=== PATIENT | male | born 1955 | race Caucasian/White ===

== ENCOUNTER 2024-04-22 05:56 | Inpatient (IN) ==
--- NOTE | 2024-03-22 11:42 | PAT Medication Instructions ---
Medication Instructions Date of Service March 22, 2024 Home Medications Medication Instructions Recorded amlodipine 10 mg tablet 10 mg PO QAM #90 tabs 06/04/23 metformin 1,000 mg tablet 1,000 mg PO BIDWMEAL #180 tabs 06/04/23 dapagliflozin propanediol 10 mg 10 mg PO QAM #90 tabs 10/10/23 tablet (Farxiga) atorvastatin 10 mg tablet 10 mg PO QPM #90 tabs 02/11/24 multivitamin 1 tab PO QAM aspirin 81 mg tablet,delayed release 81 mg PO QPM amlodipine 10 mg tablet 10 mg PO QAM metformin 1,000 mg tablet 1,000 mg PO BIDWMEAL dapagliflozin propanediol 10 mg tablet (Farxiga) 10 mg PO QAM atorvastatin 10 mg tablet 10 mg PO QPM dutasteride 0.5 mg capsule 0.5 mg PO QAM ASK your prescriber and surgeon aspirin 81 mg tablet,delayed release 81 mg PO QPM STOP taking 3 days before surgery dapagliflozin propanediol 10 mg tablet (Farxiga) 10 mg PO QAM STOP taking 48 hours before surgery metformin 1,000 mg tablet 1,000 mg PO BIDWMEAL DO NOT take the morning of surgery multivitamin 1 tab PO QAM amlodipine 10 mg tablet 10 mg PO QAM Take morning of surgery With a small sip of water, OTHERWISE NOTHING TO EAT OR DRINK AFTER MIDNIGHT: dutasteride 0.5 mg capsule 0.5 mg PO QAM Take evening before surgery atorvastatin 10 mg tablet 10 mg PO QPM Other Notes If you have any questions please call us at [phone] or [phone] or [phone] or [phone]
--- NOTE | 2024-03-31 09:46 | Anesthesiology Consultation ---
Date of Service March 31, 2024 Assessment & Plan (1) Encounter for pre-operative examination: - Check BSG AM DOS - Infectious disease screening: Per assessment on 03/31/24: No known recent infectious disease contacts in past 10 days. Patient's did test Covid positive 03/11/24. Patient states shortly after, he developed similar URI symptoms which have resolved except mild residual cough. Home Covid testing has been negative. DOS not until 04/22/24. Patient was advised to contact PAT/surgeon if symptoms not at baseline prior to surgery. Chart Review Chart Review: Acceptable Risk for Surgery and Patient seen in Pre Admission Testing Teaching & Discussion Pre-Anesthesia Teaching/Discussion Notes: Instructed NPO after midnight before surgery,except medications with 15 cc of water. Medication instructions provided according to the PAT guidelines. History Surgery Operation Date: 04/22/24 07:30 Proposed Procedures p Robotic Laparoscopic Assisted Radical Retropubic Prostatectomy, Possible Open, Possible Pelvic Lymph Node Dissection - Immanuel Gallo, DO Height/Weight Height: 5 ft 5 in Weight: 85.1 kg Allergies Allergy/AdvReac Type Severity Reaction Status Date / Time lisinopril AdvReac Mild Cough Verified 03/17/24 13:05 valsartan [From Diovan] AdvReac Mild Cough Verified 03/30/24 09:00 Medications Home Medications Medication Instructions Recorded Confirmed Last Taken multivitamin 1 tab PO QAM 12/20/20 03/17/24 12/21/22 aspirin 81 mg tablet,delayed 81 mg PO QPM 12/12/22 03/17/24 12/19/22 release amlodipine 10 mg tablet 10 mg PO QAM #90 tabs 06/04/23 03/17/24 Unknown metformin 1,000 mg tablet 1,000 mg PO BIDWMEAL #180 tabs 06/04/23 03/17/24 Unknown dapagliflozin propanediol 10 mg 10 mg PO QAM #90 tabs 10/10/23 03/17/24 Unknown tablet (Farxiga) atorvastatin 10 mg tablet 10 mg PO QPM #90 tabs 02/11/24 03/17/24 Unknown dutasteride 0.5 mg capsule 0.5 mg PO QAM 03/17/24 03/17/24 Unknown Past Medical History Medical History (Updated 03/31/24 @ 09:41 by Hayley Motley) Aortic root dilatation Echo 07/2023: Aortic root is normal size. Borderline dilated ascending aorta. BPH w urinary obs/LUTS Diabetes mellitus, type 2 History of elevated PSA Hx of colonic polyps Hyperlipidemia Hypertension Prostate CA (01/2024) Sensorineural hearing loss (SNHL) of both ears Per records: Mild sloping to severe SNHL AU Wears hearing aid in both ears Per records: Phonak B90-10 CIC titanium Exercise / Class Metabolic Activity II 4-5 Yardwork/Stairs/Walk up hill (one FS: No CP, no SOB) Past Family History Family History Father Congestive heart failure Heart disease Melanoma Hypertension Mother Alzheimer disease Dementia Sister No problems noted. Daughter No problems noted. Daughter No problems noted. Other Encounter for pre-operative examination No family history of adverse response to anesthesia Denies family history of Colon cancer Ovarian cancer Prostate cancer Myocardial infarction Breast cancer Past Surgical History Surgical History (Updated 03/30/24 @ 09:03 by Hayley Motley) H/O cystoscopy H/O prostate biopsy 04/2018 (benign), 01/2024 (cancer) Hx of colonoscopy with polypectomy Hx of tonsillectomy (1959) [place] teeth removed Past Anesthesia History No Hx of Anesthesia Complications and No Family Hx of Anesthesia Complications History of PONV No Hx of PONV and No Hx of Motion Sickness Social History Smoking Status: Never smoker Do You Dip or Chew Tobacco: No Hx Alcohol Use: Yes Alcohol type: beer, wine and hard liquor alcohol intake frequency: a few times a month Hx Substance Use: No substance use type: does not use Review of Systems Patient denies chest pain, shortness of breath, dyspnea on exertion, fever, chills, cough, wheezing, palpitations. Physical Exam Vital Signs BP 112/69 P 67 TEMP 97.8 SP02 95%RA RESP 16 Physical Full cervical extension range of motion. Full TMJ range of motion. TMD > 3.5 finger breaths Mallampati Score III Dentition: intact, + crowns Lungs: clear throughout to auscultation Cardiac: regular rate and rhythm, no murmurs noted Spine: normal Carotid arteries: negative bruit Extremities: no LE edema Lab Results Anesthesia Preop Results Results Anesthesia Widget: WBC 5.26 K/ul (4.8-10.8) 03/31/24 Hgb 15.7 g/dl (14.0-18.0) 03/31/24 Hct 44.5 % (42.0-52.0) 03/31/24 Plt 162 K/uL (130-400) 03/31/24 Na 140 mmol/L (136-145) 03/31/24 K 3.8 mmol/L (3.5-5.1) 03/31/24 Cl 104 mmol/L (98-107) 03/31/24 CO2 26 mmol/L (21-32) 03/31/24 BUN 19 mg/dl (6-23) 03/31/24 Creat 0.80 mg/dl (0.6-1.4) 03/31/24 Glucose Level 145 mg/dl (70-99(Fasting)) H 03/31/24 HA1c 6.2 % (4.5-5.6) H 02/05/24 Blood Type B Positive 03/31/24 Antibody Screen NEGATIVE 03/31/24 Testing Laboratory Results Urine culture (03/31/24): pending Electrocardiogram Date: 03/31/24 NSR at 66bpm. LAD. Minimal voltage criteria for LVH, may be normal variant. No significant change compared to 06/30/2022 per block saw operator comparison. Chest X-Ray Date: 03/31/24 FINDINGS: No lines and tubes are seen. The cardiomediastinal silhouette is normal. The lungs are clear. No evidence of pleural effusion or pneumothorax. IMPRESSION: No acute chest disease. Echocardiogram Date: 08/19/23 EF 55-60%. Grade I DD. No RWMA. No thrombus. Borderline cLVH. Borderline dilated ascending aorta.
[2024-04-22] MEDS ORDERED: LACTATED RINGER'S 1,000 ML IV SCH (06:00)
[2024-04-22] MEDS: LACTATED RINGER'S 1,000 ML IV SCH (06:44)
[2024-04-22] MEDS: HEPARIN SOD 5,000 UNIT/0.5 ML VIAL SQ SCH (06:45)
--- NOTE | 2024-04-22 06:47 | History & Physical Report ---
Date of Service April 22, 2024 Assessment & Plan (1) Prostate CA: (2) Diabetes mellitus, type 2: (3) Aortic root dilatation: (4) BPH w urinary obs/LUTS: (5) Hypertension: Plan Patient with Giovani 4+5 Prostate Cancer. 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 Significant prostate enlargement. Risks and benefits discussed at length for procedure. These include bleeding, infection, injury to surrounding tissues or organs, and risks associated with anesthesia. Patient states understanding and agrees to proceed. Will sign consent and proceed. Plan for Robot assisted Laparoscopic Radical Prostatectomy with Bilateral Pelvic Lymph Node dissection History of Present Illness Primary Care Provider: Ruiz Tena MD Patient here for procedure. No changes in medical issues. No major changes in urinary issues. Continued issues and concerns. No change in pain or discomfort. No severe fevers or chills. No chest pain or shortness of breath. Risks and benefits discussed at length for procedure. These include bleeding, infection, injury to surrounding tissues or organs, and risks associated with anesthesia. Patient and/or family states understanding and agrees to proceed. Consent and supporting information completed. Allergies Allergy/AdvReac Type Severity Reaction Status Date / Time lisinopril AdvReac Mild Cough Verified 04/22/24 06:17 valsartan [From Diovan] AdvReac Mild Cough Verified 04/22/24 06:17 Home Medications Medication Instructions Recorded Confirmed Type multivitamin 1 tab PO QAM 12/20/20 04/22/24 History aspirin 81 mg tablet,delayed 81 mg PO QPM 12/12/22 04/22/24 History release amlodipine 10 mg tablet 10 mg PO QAM #90 tabs 06/04/23 04/22/24 Rx metformin 1,000 mg tablet 1,000 mg PO BIDWMEAL #180 tabs 06/04/23 04/22/24 Rx dapagliflozin propanediol 10 mg 10 mg PO QAM #90 tabs 10/10/23 04/22/24 Rx tablet (Farxiga) atorvastatin 10 mg tablet 10 mg PO QPM #90 tabs 02/11/24 04/22/24 Rx dutasteride 0.5 mg capsule 0.5 mg PO QAM 03/17/24 04/22/24 History Past Med/Surg History Problem List Encounter for pre-operative examination Microalbuminuria Proteinuria Bilateral tinnitus Atypical small acinar proliferation of prostate Actinic keratosis Medical History Wears hearing aid in both ears Per records: Phonak B90-10 CIC titanium Sensorineural hearing loss (SNHL) of both ears Per records: Mild sloping to severe SNHL AU Hx of colonic polyps BPH w urinary obs/LUTS Aortic root dilatation Echo 07/2023: Aortic root is normal size. Borderline dilated ascending aorta. Hypertension Prostate CA (01/2024) History of elevated PSA Diabetes mellitus, type 2 Hyperlipidemia Surgical History Hx of colonoscopy with polypectomy H/O cystoscopy [place] teeth removed H/O prostate biopsy 04/2018 (benign), 01/2024 (cancer) Hx of tonsillectomy (1960) Family History Father Congestive heart failure Heart disease Melanoma Hypertension Mother Alzheimer disease Dementia Sister No problems noted. Daughter No problems noted. Daughter No problems noted. Other Encounter for pre-operative examination No family history of adverse response to anesthesia Denies family history of Colon cancer Ovarian cancer Prostate cancer Myocardial infarction Breast cancer Social History Smoking Status: Never smoker Second Hand Exposure: No; Do You Dip or Chew Tobacco: No; Tobacco Cessation Education Requested by Patient: No Hx Alcohol Use: Yes Alcohol type: beer, wine and hard liquor Hx Substance Use: No Preferred Language: Urdu Communication Ability: Effective Visual Impairment: Limited Hearing Ability: Use of Hearing Aid Tile Applicator Required: No Beliefs That Will Affect Care: None marital status: Current Living Situation: Spouse current occupational status: retired How many Children do You have: 2 Other Information That Helps Us Care for You: No Feels Safe at Home: Yes Safety Concerns: Feels Safe At This Time Childhood Exposure to Second-Hand Smoke: Yes Diet: regular caffeine: Yes during the past year weight has: remained stable Dental Care, Regularly: Yes Physical Activity Frequency: Daily Seatbelt Use: always Sunscreen Use: Yes Assistive Devices: Glasses and Hearing Aid - Bilateral Review of Systems All systems reviewed & are unremarkable except as noted in HPI & below Physical Exam Physical Exam: General: Alert/Arousable. No Acute illness. . HEENT: Inspection normal. Normal inspection of face. Normal inspection of neck. Psychologic: Normal affect/No change in mentation. Respiratory: No use of accessory muscles. No respiratory changes or exacerbation or changes with tachypnea or dyspnea. Cardiovascular: No tachycardia Skin: Kersey and Dry. No new rashes or visible lesions. Abdomen: Normal inspection. No guarding. Results & Data Vital Signs (Past 12 Hours) Vital Signs Temp Pulse Resp BP Pulse Ox O2 Del Method 04/22/24 06:22 36.9 C 64 20 136/75 95 Room Air PG Care Time/CCT Total # of Minutes Spent Total Time Spent with Patient: Total time spent is greater than 50% in coordination of care (as documented) at patient's floor/unit and/or counseling patient: Coding Level of Care Code None Diagnoses Prostate CA C61 Diabetes mellitus, type 2 E11.9 Aortic root dilatation I77.810 BPH w urinary obs/LUTS N40.1; N13.8 Hypertension I10
[2024-04-22] MEDS ORDERED: MIDAZOLAM HCL 1 MG/ML 2ML VIAL ONE (06:50)
[2024-04-22] MEDS ORDERED: LIDOCAINE 2% 2 ML VIAL/AMP(20MG/ML) INFIL ONE (06:50)
[2024-04-22] MEDS ORDERED: ROCURONIUM BROMIDE 10 MG/ML 5 ML VIAL IV ONE ×2 (06:50→08:09)
[2024-04-22] MEDS ORDERED: PROPOFOL IV EMULSION 10 MG/ML 20 ML VIAL IV ONE (06:50)
[2024-04-22] MEDS ORDERED: ONDANSETRON INJ 2 MG/ML 2 ML VIAL ONE (06:50)
[2024-04-22] MEDS ORDERED: DEXAMETHASONE SOD INJ 4 MG/ML VIAL ONE (06:50)
[2024-04-22] MEDS ORDERED: HYDROmorphone INJ 2 MG/ML SYR/VIAL ONE (06:51)
[2024-04-22] MEDS ORDERED: fentaNYL citrate PF 100 MCG/2 ML VIAL ONE (06:51)
[2024-04-22] MEDS ORDERED: fentaNYL citrate PF 100 MCG/2 ML VIAL IV PRN (07:18)
[2024-04-22] MEDS ORDERED: HYDROmorphone INJ 2 MG/ML SYR/VIAL IV PRN (07:18)
[2024-04-22] MEDS ORDERED: PROMETHAZINE HCL 6.25 MG in SODIUM CHLORIDE 0.9% 50 ML IV PRN (07:18)
[2024-04-22] MEDS ORDERED: ePHEDrine sulfate 50 MG/ML AMP IV PRN (07:18)
[2024-04-22] MEDS ORDERED: ATROPINE SULFATE 0.1 MG/ML 10ML SYR IV PRN (07:18)
[2024-04-22] MEDS ORDERED: ONDANSETRON INJ 2 MG/ML 2 ML VIAL IV PRN ×2 (07:18→13:49)
[2024-04-22] MEDS: ceFAZolin 2000MG 2,000 MG/15 ML SYR IV SCH ×2 (07:28→15:32)
[2024-04-22] MEDS ORDERED: PHENYLEPHRINE 100MCG/ML 5ML SYR ONE ×2 (08:01→10:06)
[2024-04-22] MEDS ORDERED: ePHEDrine sulfate 50 MG/ML AMP ONE (08:01)
[2024-04-22] MEDS ORDERED: SUGAMMADEX SODIUM 200 MG/2 ML VIAL IV ONE (09:21)
[2024-04-22] MEDS: SURGICEL ABSORB HEMOSTAT 2IN X 14IN TOP ONE (09:31)
[2024-04-22] MEDS ORDERED: ALBUMIN HUMAN 5% 12.5 GM/250 ML VIAL IV ONE ×2 (10:10→10:32)
[2024-04-22] MEDS: TISSEEL FIBRIN SEALANT 10ML TOP ONE (11:31)
--- NOTE | 2024-04-22 12:14 | Operative Report ---
PG Post Operative Report Pre & Post Diagnosis Operation Date: 04/22/24 07:30 Pre-Op Diagnosis: Prostate Cancer Post-Op Diagnosis: Prostate Cancer I identified the patient and participated in the time-out.: Yes Procedure Operation Date: 04/22/24 07:30 Actual Procedures p Robotic Assisted Laparoscopic Radical Retropubic Prostatectomy with Pelvic Lymph Node Dissection, Extensive Lysis of adhesions, Resection of pelvic mass likely inflammed epiploic appendage. - Immanuel Gallo, Surgeon Immanuel Gallo, II, DO [employer] Aaron STEVENS Estimated Blood Loss 900 Findings Consistent with Post-Op Diagnosis Severe adhesions on the left and right pelvic sidewall to the colon. Calcified/inflamed appearing mass in the lower left pelvis likely inflamed epiploic appendage with significant adhesions. Significant adherence of the posterior prostate and lateral prostate along the pelvic sidewall Specimens Prostate and Seminal Vesicle Left Pelvic Lymph Nodes Right Pelvic Lymph Nodes. Pelvic mass for frozen Drains 18 FR Pabon catheter. Anesthesia Type General Complications none Disposition Disposition: Recovery Room Indications Patient with Prostate Cancer. Risk and benefits were discussed at length. Patient elected to undergo robotic assisted laparoscopic Radical Prostatectomy. Description of Procedure The patient was brought to the operative suite and placed under general endotracheal intubation anesthesia in the supine position. The patient was transferred to the dorsal lithotomy position. At this point, the patient prepped and draped in the usual sterile fashion and a timeout was completed. Preoperative antibiotics of Ancef 2 grams had been given. WIN's and SCD's were placed on the patient's lower extremities. A catheter was placed using sterile technique. With the time out completed the patient was placed into Trendelenburg and the skin at the umbilicus was anesthetized. A small incision was made superior to the umbilicus. A Varess Needle was placed and confirmed to be in the abdominal cavity. Water drop test passed. The Abdominal cavity was insufflated to 15 m mHG. The camera port was then placed. A laparoscopic camera was placed into the port and the abdominal cavity inspected. No concerning features were noted. At this point, the skin was marked for port placement and 8mm working ports were placed. The skin was anesthetized down to fascia and an approx 1cm incision was made to place the 3 x 8mm ports. A 12mm and 5 mm assistant producer ports were also plac ed in similar fashion under direct visualization. Due to significant occasions near the 12 mm port laparoscopic tools were utilized to sharply dissect the thin adhesions near the site where the 12 mm port was going to be placed. Care was taken to monitor the bowel throughout the entire process. No sign of any injury or tearing was noted. No heat/cautery was used during this dissection The patient was transferred into steep Trendelenburg position and the legs lowered. The robot was positioned and docked. The camera was placed and all trocars were positioned under direct visualization. RODNEY Encarnacion was integral in port placement, camera utilization, and docking procedure. She remained in sterile attire and then proceeded to assist the remainder of the case. At this point, I transitioned to the robotic console. At this point, the sigmoid colon was mobilized superiorly and the pelvis assessed. More significant adhesions were noted in the left lower quadrant and lower pelvis. Additional ones were also discovered on the right. Extensive adhesions were freed to allow mobilization. Greater than 20 minutes undergoing lysis of adhesions. Within the left pelvis around the return of the sigmoid colon there was a inflamed possibly calcified masslike structure that was discovered. It appeared to be a likely inflamed epiploic appendage. Due to the patient's known history of prostate cancer did carefully dissect this lesion from the pelvic wall. It was able to be removed without major issue placed into an Endo Catch bag and sent for frozen assessment. The pathology report came back as fat material likely epiploic appendage consistent with the interoperative findings. The peritoneum in the midline was opened between rectum and bladder and the vas deferens and seminal vesicles exposed. These were dissected with blunt technique. The vas was clipped and cut and mobilized. Cautery was used to assist dissection avoiding the tissue posteriorly near the rectum. The tissues lateral to the seminal vesicles were clipped with a hemolock and all bleeding controlled. This was taken as inferior as possible from this position. Significant adherence was noted along the lateral edges. There was a moderate amount of venous appearing bleeding coming from the lateral edges. Minimal cautery was utilized. The medial umbilical ligaments were then identified and the peritoneum directly lateral on the right followed by the left was opened. The tissues were bluntly dissected to free the bladder's lateral attachments. This was taken down to the pubic bone and exposed the endopelvic fascia bilaterally. The medial ligaments were cut and the bladder dropped. The tissues was dissected anterior to the prostate. The right and left pelvic lymph tissue was identified in relation to the iliac vessels. Distal dissection was taken to the Node of [place]. Inferiorly the obtorator vessels and nerve were identified. Lymphatic tissue within the surround fat tissue was dissected. This packet of tissues were sent for pathologic analysis and lymph node assessment. This was done for each separate side. Hemostatic agent was placed on the exposed vessels. The endopelvic fascia on each side was then opened and the lateral edges of the prostate dissected. The Dorsal venous complex of the prostate was dissected and assessed. A 2-0 PDS suture was used to ligate the vessels. A suspension stitch was used and clipped. An additional 3-0 Vicryl suture was then used to close additional areas of the dorsal venous structure. Electrocautery was used to cut the anterior attachments, the puboprostatic ligaments, and venous tissues. The pabon was manipulated to better visual the bladder neck and dissection was taken using electrocautery. The bladder neck was opened and dissected from the prostate. The UO were identifed and dissection taken in a direction to avoid each side. The vas stump and seminal vesicles were exposed and used to assist in traction to dissect. The prostatic pedicles were better exposed. Significant inflamed tissue and thickened tissue was noted in this area. The prostatic pedicle were extremely thick and placing clips across them was discovered to be difficult. Clips were able to be placed with additional dissection and dissection was then able to be taken further. The posterior prostate was dissected. The tissue of the posterior prostate as well as the lateral edges was found to be severely thickened and inflamed likely from previous multiple biopsies as well as chronic prostatitis issues from prostate enlargement. No signs of mass or tumor were noted to be projecting from the posterior capsule or the prostate. The tissue was severely thickened and clip placement was difficult. An attempt was made to limit cautery and utilize cold dissection of the lateral posterior prostate to attempt preservation of the neurovascular bundle bilaterally. Hemolock clips were utilized to clip the prostatic pedicle bilaterally. The dissection was taken to the apex of the prostate. The anterior prostate was released and the urethra exposed. Cold cutting was used to open the anterior portion and expose the catheter. This was removed and the urethra incised. The prostate was further freed and grasped and removed from the field. The entire dissection bed was inspected.Hemostatic agent was placed in the region. No areas of injury or bleeding was noted. Care was taken to examine the perirectal tissues. A probe was placed and no injuries or other issues were observed. The dorsal venous structure was closed with an additional 3-0 Vicryl suture. A 3-0 Vicryl suture was then used to reduce the space between the bladder and the periurethral tissue. The bladder neck and urethra were then approximated with a running barbed suture starting at the 5 o'clock position and moving to the 12 o'clock on each side. This was tied at the anterior portion. A leak test was completed without any evidence of issues. Tisseel, Floseal, and Surgicel were all placed within the wound bed and the resection sites. The entire dissection space was inspected one final time. No bleeding or injuries or areas of concern were noted. No tumor or other concerning features were noted. At this point, the robot was undocked and moved away from the patient. The patient was taken out of Trendelenberg. The port sites were all assessed laparoscopically. The endoscopic bag was moved into the midline port. The 12 mm port site was closed with the Jakob Garcia device. The other ports were assessed and no issues observed. The umbilical incision was opened further exposing fascia which was then opened in order to removed the prostate in the bag. The prostate was removed. A running 1-0 PDS suture was used to close fascia. The skin at each site was closed with a running Monocryl suture. The area was cleaned and glue placed on each incision. The patient was cleaned and bandaged, aroused from anesthesia, and transferred to the pacu in stable condition having tolerated the procedure well with no complications. I was present and participated in all aspects of the procedure. Aaron STEVENS was critical in the portions as mentioned above. Will plan to observe postoperatively and monitor. Pabon to be remain in place until followup. I attest to the content of the Intraoperative Record and any orders documented therein. Any exceptions are noted below.
[2024-04-22] MEDS: FLOSEAL HEMOSTATIC MATRIX 10ML TOP ONE (12:15)
[2024-04-22] MEDS: BUPIVACAINE 0.5 % 5 MG/1 ML MPF 30ML VIAL ONE (12:15)
[2024-04-22 12:27] LABS: iSTAT Creatinine 1.1 mg/dl (0.6-1.3); iSTAT Hemoglobin 10.9 g/dl (14.0-18.0); iSTAT Ionized Calcium 1.15 mmol/l (1.12-1.32); iSTAT Potassium 4.1 mmol/L (3.3-5.0)
[2024-04-22 12:59] LABS: Hemoglobin 11.9 g/dl (14.0-18.0)
[2024-04-22 13:02] LABS: Basophils # (auto) 0.02 K/uL (0.00-0.20); Basophils % (auto) 0.3 %; Eosinophils # (auto) 0.01 K/uL (0.00-0.50); Eosinophils % (auto) 0.1 %; Hematocrit (blood only) 35.8 % (42.0-52.0); Hemoglobin 12.1 g/dl (14.0-18.0); Immature Granulocytes # (auto) 0.03 K/uL (0.01-0.20); Immature Granulocytes % (auto) 0.4 %; Lymphocytes # (auto) 0.71 K/uL (1.20-3.40); Lymphocytes % (auto) 10.6 %; Mean Corpuscular Hemoglobin 30.9 pg (25.0-34.0); Mean Corpuscular Hgb Conc 33.8 g/dL (32.0-36.0); Mean Corpuscular Volume 91.3 fL (80.0-100.0); Mean Platelet Volume 10.1 fL (9.4-12.4); Monocytes # (auto) 0.34 K/uL (0.11-0.59); Monocytes % (auto) 5.1 %; Neutrophils % (auto) 83.5 %; Platelet Count 135 K/uL (130-400); RDW Coefficient of Variation 13.9 % (11.5-14.5); RDW Standard Deviation 46.6 fL (36.4-46.3); Red Blood Count 3.92 M/uL (4.70-6.10); White Blood Count 6.71 K/ul (4.8-10.8)
[2024-04-22 13:20] LABS: BUN Creatinine Ratio 14.5 (10-20); Calcium 8.4 mg/dl (8.6-10.3); Creatinine Clr Calc Pharmacy 62.1 ml/min; Potassium 3.8 mmol/L (3.5-5.1)
--- NOTE | 2024-04-22 13:37 | Anesthesiology Progress Note ---
Date of Service April 22, 2024 Anesthesia Post Procedure Vital Signs Vital Signs: Temp Pulse Resp BP BP Pulse Ox O2 Del Method 04/22/24 13:35 36.5 C 82 18 129/75 92 Nasal Cannula 04/22/24 13:20 77 20 151/83 H 96 Nasal Cannula 04/22/24 13:05 36.5 C 73 20 147/79 H 95 Nasal Cannula 04/22/24 12:55 85 22 154/82 H 94 Nasal Cannula 04/22/24 12:45 86 24 142/67 H 96 Oxymask 04/22/24 12:35 81 18 160/78 H 96 Oxymask 04/22/24 12:25 87 22 154/83 H 97 Oxymask 04/22/24 12:13 36.2 C L 88 20 159/87 H 98 Oxymask 04/22/24 06:22 36.9 C 64 20 136/75 95 Room Air O2 Flow Rate 04/22/24 13:35 3 04/22/24 13:20 3 04/22/24 13:05 3 04/22/24 12:55 2 04/22/24 12:45 3 04/22/24 12:35 6 04/22/24 12:25 6 04/22/24 12:13 6 04/22/24 06:22 Transfer of Care Handoff Completed per policy Notes Mental Status: alert / awake / arousable Patient Amnestic to Procedure: Yes Nausea / Vomiting: adequately controlled Pain: adequately controlled Airway Patency, RR, SpO2: stable & adequate BP & HR: stable & adequate Hydration State: stable & adequate Anesthetic Complications: no major complications apparent
[2024-04-22] MEDS ORDERED: ACETAMINOPHEN 325 MG TAB PO PRN (13:49)
[2024-04-22] MEDS ORDERED: PHARMACY GLYCEMIC MGMT CONSULT PRN (13:49)
[2024-04-22] MEDS ORDERED: MoRPHine SULFATE 2 MG/ML CARP IV PRN (13:49)
[2024-04-22] MEDS ORDERED: oxyCODONE HCL IR 5 MG TAB (IMMEDIATE RELEASE) PO PRN (13:49)
[2024-04-22] MEDS ORDERED: MoRPHine SULFATE 4 MG/ML 1 ML CARP\\VIAL IV PRN (13:49)
[2024-04-22] MEDS ORDERED: DEXTROSE 50% 50 ML SYRINGE IV PRN (14:30)
[2024-04-22] MEDS ORDERED: GLUCOSE 10 TAB/TUBE PO PRN (14:30)
[2024-04-22] MEDS ORDERED: GLUCAGON FOR INJ 1 MG VIAL SQ PRN (14:30)
[2024-04-22] MEDS ORDERED: CARBOHYDRATES FOR HYPOGLYCEMIA PO PRN (14:30)
[2024-04-22] MEDS ORDERED: GLUCOSE 40% GEL 15 GM TUBE PO PRN (14:30)
[2024-04-22] MEDS: INSULIN ASPART PER UNIT CHARGE SC SCH (14:35)
--- NOTE | 2024-04-22 14:38 | Pharmacy Report ---
Pharmacy Glycemic Short Note 2 - Date of Service April 22, 2024 - Glycemic Short BSG Results (Last 24 hours): 04/22/24 04/22/24 04/22/24 06:20 10:45 12:14 Glucose POC Glucose 124 H 177 H POC Glucose (other) 196 H 04/22/24 12:30 Glucose 186 H POC Glucose POC Glucose (other) OUTPATIENT ANTIDIABETIC REGIMEN: * Farxiga 10 mg PO daily ASSESSMENT: * Immanuel Wagner is a 69 yo M w/hx of BPH, prostate ca, HTN and T2DM. Pt is POD0 prostatectomy w/pelvic lymph node dissection. Pharmacy was consulted for glycemic management s/t pt's hx of DM. * Pt's preop BSG was 124, and gera to nearly 200 postop. Pt received 1 dose of dexamethasone 4 mg, which may have contributed; no postop steroids ordered. Since preop BSG was controlled will withhold basal insulin at this time. * NovoLog stress level of 2 will be ordered PLAN FOR INPATIENT GLYCEMIC CONTROL: * Hold outpatient oral diabetes medications * Basal insulin * No basal insulin ordered for now * Bolus insulin * NovoLog per scale ACHS or Q6hrs while NPO * Goal Range: Low 110 mg/dL - High 140 mg/dL * Correction Factor: 25 mg/dL/unit * Nutritional / Prandial insulin per carb ratio of 1 unit per 10 grams CHO consumed
[2024-04-22 17:03] LABS: Basophils # (auto) 0.02 K/uL (0.00-0.20); Basophils % (auto) 0.2 %; Hematocrit (blood only) 34.7 % (42.0-52.0); Hemoglobin 11.9 g/dl (14.0-18.0); Immature Granulocytes # (auto) 0.02 K/uL (0.01-0.20); Immature Granulocytes % (auto) 0.2 %; Lymphocytes # (auto) 0.42 K/uL (1.20-3.40); Mean Corpuscular Hemoglobin 30.8 pg (25.0-34.0); Mean Corpuscular Hgb Conc 34.3 g/dL (32.0-36.0); Mean Corpuscular Volume 89.9 fL (80.0-100.0); Mean Platelet Volume 10.1 fL (9.4-12.4); Monocytes # (auto) 0.53 K/uL (0.11-0.59); Monocytes % (auto) 6.4 %; Neutrophils # (auto) 7.35 K/uL (1.40-6.50); Neutrophils % (auto) 88.2 %; Platelet Count 139 K/uL (130-400); RDW Coefficient of Variation 13.7 % (11.5-14.5); RDW Standard Deviation 44.9 fL (36.4-46.3); Red Blood Count 3.86 M/uL (4.70-6.10); White Blood Count 8.34 K/ul (4.8-10.8)
[2024-04-22 17:16] LABS: BUN Creatinine Ratio 18.2 (10-20); Calcium 8.4 mg/dl (8.6-10.3); Creatinine Clr Calc Pharmacy 77.7 ml/min; Potassium 3.8 mmol/L (3.5-5.1)
[2024-04-22] MEDS: oxyCODONE HCL IR 5 MG TAB (IMMEDIATE RELEASE) PO PRN (21:05)
[2024-04-22] MEDS: DOCUSATE SODIUM 100 MG CAP PO SCH (21:05)
[2024-04-22] MEDS: ATORVASTATIN 10 MG TAB PO SCH (21:10)
[2024-04-23] MEDS ORDERED: HEPARIN SOD 5,000 UNIT/0.5 ML VIAL SQ SCH (06:00)
[2024-04-23] MEDS ORDERED: ceFAZolin 2000MG 2,000 MG/15 ML SYR IV SCH (06:00)
[2024-04-23 07:15] LABS: Basophils # (auto) 0.01 K/uL (0.00-0.20); Basophils % (auto) 0.1 %; Eosinophils # (auto) 0.02 K/uL (0.00-0.50); Eosinophils % (auto) 0.3 %; Hematocrit (blood only) 30.8 % (42.0-52.0); Hemoglobin 10.5 g/dl (14.0-18.0); Immature Granulocytes # (auto) 0.02 K/uL (0.01-0.20); Immature Granulocytes % (auto) 0.3 %; Lymphocytes # (auto) 0.83 K/uL (1.20-3.40); Lymphocytes % (auto) 11.7 %; Mean Corpuscular Hemoglobin 30.5 pg (25.0-34.0); Mean Corpuscular Hgb Conc 34.1 g/dL (32.0-36.0); Mean Corpuscular Volume 89.5 fL (80.0-100.0); Mean Platelet Volume 10.4 fL (9.4-12.4); Monocytes # (auto) 0.96 K/uL (0.11-0.59); Monocytes % (auto) 13.5 %; Neutrophils # (auto) 5.25 K/uL (1.40-6.50); Neutrophils % (auto) 74.1 %; Platelet Count 154 K/uL (130-400); RDW Coefficient of Variation 14.2 % (11.5-14.5); RDW Standard Deviation 45.9 fL (36.4-46.3); Red Blood Count 3.44 M/uL (4.70-6.10); White Blood Count 7.09 K/ul (4.8-10.8)
[2024-04-23 07:29] LABS: Calcium 8.3 mg/dl (8.6-10.3); Creatinine Clr Calc Pharmacy 65.1 ml/min; Potassium 3.6 mmol/L (3.5-5.1)
[2024-04-23 08:27] VITALS: BP 135/65; PULSE 64; RESP 18; TEMP 98.1; O2SAT 95
[2024-04-23] MEDS: amLODIPine BESYLATE 5 MG TAB PO SCH (09:52)
--- NOTE | 2024-04-23 10:02 | Pharmacy Report ---
Pharmacy Glycemic Short Note 2 - Date of Service April 23, 2024 - Glycemic Short BSG Results (Last 24 hours): 04/22/24 04/22/24 04/22/24 10:45 12:14 12:30 Glucose 186 H POC Glucose 177 H POC Glucose (other) 196 H 04/22/24 04/22/24 04/22/24 14:32 16:34 16:49 Glucose 167 H POC Glucose 189 H 179 H POC Glucose (other) 04/22/24 04/23/24 04/23/24 20:41 06:46 09:11 Glucose 145 H POC Glucose 181 H 171 H POC Glucose (other) OUTPATIENT ANTIDIABETIC REGIMEN: * Farxiga 10 mg PO daily ASSESSMENT: 04/23 * pt's BSG last night was 181. BSG random 145 and POC 171 this AM * total insulin yesterday included 9 units bolus and no basal. * No ordered steroids today; will continue same plan as yesterday w/no changes. 04/22 * Immanuel Wagner is a 69 yo M w/hx of BPH, prostate ca, HTN and T2DM. Pt is POD0 prostatectomy w/pelvic lymph node dissection. Pharmacy was consulted for glycemic management s/t pt's hx of DM. * Pt's preop BSG was 124, and gera to nearly 200 postop. Pt received 1 dose of dexamethasone 4 mg, which may have contributed; no postop steroids ordered. Since preop BSG was controlled will withhold basal insulin at this time. * NovoLog stress level of 2 will be ordered PLAN FOR INPATIENT GLYCEMIC CONTROL: * Hold outpatient oral diabetes medications * Basal insulin * No basal insulin ordered for now * Bolus insulin * NovoLog per scale ACHS or Q6hrs while NPO * Goal Range: Low 110 mg/dL - High 140 mg/dL * Correction Factor: 25 mg/dL/unit * Nutritional / Prandial insulin per carb ratio of 1 unit per 10 grams CHO consumed
--- NOTE | 2024-04-23 10:28 | Urology Progress Note ---
Date of Service April 23, 2024 Assessment & Plan (1) Prostate cancer: Plan POD #1 s/p Robotic Assisted Laparoscopic Radical Retropubic Prostatectomy with Pelvic Lymph Node Dissection, Extensive Lysis of adhesions, Resection of pelvic mass likely inflamed epiploic appendage with Dr. Gallo - Doing well, progressing as expected - Remains afebrile with stable vitals - Labs today reviewed and stable - Hemoglobin 10.5, WBC 7.09, Creatinine 1.05 - Sin intact and draining light red/pink urine - Reports minimal pain - Tolerating diet - Incisions appropriate Plan: - Advance diet - Encourage ambulation - Maintain Sin catheter - Continue supportive and pain management as needed - Will reassess later this morning. Anticipate discharge home today as long as he continue to progress as expected. - Pt reassessed - Feeling well and eager to go home - Sin draining clear yellow urine - Ambulated without issue - Reports minimal pain - Tolerating diet - Patient is stable for discharge home today with Sin catheter - Discharge instructions reviewed, all questions were answered Plan of care reviewed with Dr. Gallo. Admission and Anticipated Discharge Date Admission Date: April 22, 2024 Subjective Pt seen at bedside this AM Awake and sitting in bedside chair on arrival No acute distress Overall feeling well No f/c/n/v Sin draining w/hematuria Incisions appropriate Some mild abdominal discomfort, but overall improved from yesterday Tolerating clear liquid diet +Belching, no flatus Review of Systems Constitutional: as per Subjective / HPI Gastrointestinal: as per Subjective / HPI Genitourinary: + as per Subjective / HPI Physical Exam Constitutional: no acute distress Respiratory: no respiratory distress and no labored breathing Gastrointestinal (Abdomen): Soft, non-tender. Incisions appropriate with pauly and gauze dressing intact. Musculoskeletal: Head/Neck/Chest: normocephalic Skin: No visible rashes or lesions to exposed skin areas Neurologic: moves all extremities and awake Psychiatric: A+Ox3, euthymic affect Genitourinary: Sin intact and draining light pink urine Results & Data Vital Signs (Past 12 Hours) Vital Signs Temp Pulse Resp BP Pulse Ox O2 Del Method 04/23/24 08:23 36.7 C 64 18 135/65 95 Room Air 04/23/24 04:01 36.8 C 75 19 109/64 93 Room Air 04/22/24 22:56 36.8 C 71 16 112/65 95 Room Air PG Care Time/CCT Total # of Minutes Spent Total Time Spent with Patient: Total time spent is greater than 50% in coordination of care (as documented) at patient's floor/unit and/or counseling patient: Coding Level of Care Code None Diagnoses Prostate cancer C61
--- NOTE | 2024-04-23 12:29 | Discharge Summary ---
Date of Service April 23, 2024 Admission HPI Per Admitting Provider Patient here for procedure. No changes in medical issues. No major changes in urinary issues. Continued issues and concerns. No change in pain or discomfort. No severe fevers or chills. No chest pain or shortness of breath. Risks and benefits discussed at length for procedure. These include bleeding, infection, injury to surrounding tissues or organs, and risks associated with anesthesia. Patient and/or family states understanding and agrees to proceed. Consent and supporting information completed. Admission Exam Per Admitting Provider General: Alert/Arousable. No Acute illness. . HEENT: Inspection normal. Normal inspection of face. Normal inspection of neck. Psychologic: Normal affect/No change in mentation. Respiratory: No use of accessory muscles. No respiratory changes or exacerbation or changes with tachypnea or dyspnea. Cardiovascular: No tachycardia Skin: [place] and Dry. No new rashes or visible lesions. Abdomen: Normal inspection. No guarding. Principal Diagnosis Prostate Cancer Discharge Exam Constitutional no acute distress Respiratory no respiratory distress and no labored breathing Gastrointestinal (Abdomen) Incisions appropriate, pauly intact. Musculoskeletal Head/Neck/Chest: normocephalic Neurologic moves all extremities and awake Psychiatric A+Ox3, euthymic affect Genitourinary Sin draining clear yellow urine Discharge Data Allergies Allergy/AdvReac Type Severity Reaction Status Date / Time lisinopril AdvReac Mild Cough Verified 04/22/24 06:17 valsartan [From Diovan] AdvReac Mild Cough Verified 04/22/24 06:17 Procedures Performed Operation Date: 04/22/24 07:30 Actual Procedures p Robotic Assisted Laparoscopic Radical Retropubic Prostatectomy with Pelvic Lymph Node Dissection(Not Applicable) - Immanuel Gallo, DO Hospital Course (1) Prostate cancer: Plan POD #1 s/p Robotic Assisted Laparoscopic Radical Retropubic Prostatectomy with Pelvic Lymph Node Dissection, Extensive Lysis of adhesions, Resection of pelvic mass likely inflamed epiploic appendage with Dr. Gallo - Doing well, progressing as expected - Remains afebrile with stable vitals - Labs today reviewed and stable - Hemoglobin 10.5, WBC 7.09, Creatinine 1.05 - Sin intact and draining light red/pink urine - Reports minimal pain - Tolerating diet - Incisions appropriate Plan: - Advance diet - Encourage ambulation - Maintain Sin catheter - Continue supportive and pain management as needed - Will reassess later this morning. Anticipate discharge home today as long as he continue to progress as expected. - Pt reassessed - Feeling well and eager to go home - Sin draining clear yellow urine - Ambulated without issue - Reports minimal pain - Tolerating diet - Patient is stable for discharge home today with Sin catheter - Discharge instructions reviewed, all questions were answered Plan of care reviewed with Dr. Gallo. Total Time Total Time Spent Total Time Spent (In Minutes): 15 Discharge Plan Discharge Items Patient Disposition: Home - Self-Care Reason For Visit: Prostate Cancer Discharge Diagnosis: Prostate Cancer Condition on Discharge: Good Activity: Per Instructions section Lifting: No more than 10 pounds Bathing Comment: Ok to shower. No tub baths or soaks. Sexual Activity: Wait until after follow-up appointment Exercise/Sports: Wait until after follow-up appointment Driving/Machine Use: Do not drive if taking prescription pain medication. Non-emergency contact: Surgeon and Urologist Call non-emergency contact if: you have any medication questions, your symptoms worsen, your pain is not controlled, your pain is worsening, you have a fever, your wound has increased redness, your wound has increased drainage and your wound pain has increased Follow-up/Referrals: Ruiz Tena MD [Primary Care Provider] - Immanuel Gallo DO [Physician] - 05/05/24 9:15 am [facility],Nurse [FAKE FOR SCHEDULES] - 04/29/24 8:30 am (Catheter and staple removal) Diet: Carb Consistent or DM2 Addtl Attending Provider Instructions: Please take all medications as prescribed and keep all follow-ups as scheduled. Please call our office at [phone] with any questions, concerns or need to reschedule appointments for any reason. We are happy to assist you We have sent an antibiotic to your pharmacy of choice. Please begin antibiotic as prescribed the day BEFORE your scheduled catheter removal at [facility]. Please continue antibiotic every 12 hours until complete. You may resume aspirin in 1-2 days if urine remains clear to light pink. Please call our office with any questions/concerns. Activity: We recommend having someone with you for the first few days after surgery to help care for you. For the first 2 weeks after surgery, we would like you to get up and walk around your house. However, we recommend limit physical activity that would increase your heart rate. This will allow your body to rest and heal. Take naps if you feel tired. Don't lift anything heavier than 10 pounds, mow the law or ride a bicycle until your follow-up appointment. Please avoid long car rides. Home Care: Unless directed otherwise, drink 6 to 8 glasses of water a day (enough to keep your urine light colored). This will also help keep a healthy flow of urine. We recommend using a stool softener for the first two weeks to avoid constipation. Sin Catheter or Suprapubic Catheter care: Keep the catheter well secured with either a leg back or leg strap with large bag. Empty your bag when it's about half full. You may notice some blood in the bag. This is normal after surgery and while the catheter is in place. Use mild soap (such as Dove or Dial) and water to wash the catheter and the head of your penis daily, or more frequently if needed. Return to your normal diet, we encourage good protein intake to promote healing. You may shower as normal. Please avoid tub baths or soaking until catheter removed and incisions well healed. Wearing sweat pants while you have the catheter is recommended, they will be more comfortable. Follow-up Your follow up appointments for having your catheter removed, and follow up with your physician should already be scheduled. If you have any questions regarding this, please contact our office. Your final pathology report will be discussed at your physician follow-up appointment. Call [facility] at [phone] right away if you have any of the following: Chest pain or trouble breathing (call 012 or go to the hospital) Fever of 101F or higher, uncontrolled vomiting Heavy bleeding, clots, or bright red blood from the catheter Catheter that falls out or stops draining Foul-smelling discharge from your catheter Redness, swelling, warmth, or increased pain at your incision site Drainage, pus, or bleeding from your incision Pending Studies at Discharge: Yes (pathology) Stand-Alone Forms: My [employer], Smoking Cessation Medications and DC Order Prescriptions: New docusate sodium [Colace] 100 mg capsule 100 mg PO BID Qty: 30 0RF Rx Instructions: Take twice daily for 2 weeks, then as needed thereafter ciprofloxacin HCl 500 mg tablet 500 mg PO BID 3 Days Qty: 6 0RF Rx Instructions: Start 1 day prior to catheter removal oxycodone 5 mg tablet 5 mg PO Q8H PRN (Reason: pain) Qty: 7 0RF Continued amlodipine 10 mg tablet 10 mg PO QAM Qty: 90 3RF metformin 1,000 mg tablet 1,000 mg PO BIDWMEAL Qty: 180 3RF Patient Comments: QAM dapagliflozin propanediol [Farxiga] 10 mg tablet 10 mg PO QAM Qty: 90 3RF atorvastatin 10 mg tablet 10 mg PO QPM Qty: 90 3RF Patient Comments: QPM multivitamin Tablet 1 tab PO QAM aspirin 81 mg tablet,delayed release (DR/EC) 81 mg PO QPM Discontinued dutasteride 0.5 mg capsule 0.5 mg PO QAM Rx Instructions: TAKE 1 CAPSULE BY MOUTH DAILY Discharge Orders: Discharge Order (Routine); Ordered 04/23/24 Ordered By: Ana M Lipscomb/Other Patient Handouts: Urinary Catheter Bag Empty Clean, Leg Bag Care Dc, Sin Catheter Male Admission Data Admit Date/Time: 04/22/24 12:19 Attending Provider: Immanuel Gallo Admit Provider: Immanuel Gallo Primary Care Provider: Ruiz Tena V. Other Interventions: Discharge Summary Assessment (RN) Last Done: 04/23/24 11:54 Coding Level of Care Code 87206 IN/OBS DISCH 30 MIN/LESS Diagnoses Prostate cancer C61
== END 2024-04-23 13:58 | disposition home or self-care (01) | DRG 707 ==
LOC: ASU 05:56 → INTOOBSV 12:19 → 3N 12:19 → OBSVTOIN 12:19